=== PATIENT | female | born 1985 | race Caucasian/White ===

== ENCOUNTER 2020-08-15 12:31 | Emergency (ER) | payer OTHER ==
[2020-08-15 13:06] VITALS: BP 139/92; PULSE 105; TEMP 98.9; BMI 39.4
[2020-08-15 14:51] LABS: BASO % 0.4 % (0-2.0); EOS % 1.1 % (0-4.5); HEMATOCRIT 43.5 % (32.4-45.2); HEMOGLOBIN 14.1 GM/dL (10.7-15.3); LYMPH % 30.3 % (8-40); MCH 25.5 pg (25.7-33.7); MCHC 32.4 g/dl (32.0-36.0); MEAN CELL VOLUME 78.6 fl (80-96); MEAN PLT VOLUME 9.9 fl (7.5-11.1); MONO % 5.7 % (3.8-10.2); NEUT % 62.5 % (42.8-82.8); PLATELET COUNT 237 K/MM3 (134-434); RBC 5.52 M/mm3 (3.60-5.2); RDW 13.8 % (11.6-15.6); WHITE BLOOD COUNT 5.8 K/mm3 (4.0-10.0)
[2020-08-15 15:09] LABS: CHLORIDE 104 mmol/L (98-107); POTASSIUM 4.4 mmol/L (3.5-5.1); SODIUM 137 mmol/L (136-145)
[2020-08-15 15:11] LABS: ALBUMIN 3.8 g/dl (3.4-5.0); ANION GAP 9 MMOL/L (8-16); BLOOD UREA NITROGEN 13.9 mg/dL (7-18); CALCIUM 9.5 mg/dL (8.5-10.1); CO2 24 mmol/L (21-32); GLUCOSE,RANDOM 91 mg/dL (74-106)
[2020-08-15 15:14] LABS: CREATININE 0.6 mg/dL (0.55-1.3); SGPT/ALT 80 U/L (13-61)
[2020-08-15 15:15] LABS: SGOT/AST 34 U/L (15-37)
[2020-08-15 15:16] LABS: BILIRUBIN,TOTAL 0.4 mg/dL (0.2-1); TOT PROT 7.7 g/dl (6.4-8.2)
[2020-08-15 15:17] LABS: ALK PHOS 69 U/L (45-117)
== END 2020-08-15 15:35 | disposition home or self-care (01) ==
LOC: JER 12:31 → JERFT 12:31
DX: M79.605 Pain in left leg (principal)
CPT/HCPCS: 36415; 80053; 84484; 85025; 93005; 93010; 99284-25